=== PATIENT | male | born 1950 | race Hispanic/Latino ===

== ENCOUNTER 2023-02-23 17:05 | Emergency (ER) | payer OTHER ==
[~2023-02-23] VITALS: Ht 165.1 cm; Wt 77.1 kg
[2023-02-23 18:59] LABS: APPEARANCE,URINE CLEAR (CLEAR); BILIRUBIN,URINE NEGATIVE (NEGATIVE); COLOR,URINE LIGHT-YELLOW (YELLOW); GLUCOSE, URINE (UA) NEGATIVE (NEGATIVE); KETONES,URINE NEGATIVE (NEGATIVE); LEUKOCYTE ESTERASE ,URINE NEGATIVE Leu/uL (NEGATIVE); NITRATE,URINE NEGATIVE (NEGATIVE); OCCULT BLOOD,URINE NEGATIVE (NEGATIVE); PROTEIN,URINE NEGATIVE (NEGATIVE); UROBILINOGEN,URINE 0.2 mg/dL (0.2-1.0)
[2023-02-23 19:00] LABS: ADD UA MICROSCOPIC NO
[2023-02-23] MEDS ORDERED: KETOROLAC 30MG VIAL (30MG/ML) IM ONE (20:00)
[2023-02-23] MEDS ORDERED: KETOROLAC 30MG VIAL (30MG/ML) ONE (20:12)
[2023-02-23 22:24] VITALS: BP 137/74; PULSE 82; RESP 17; O2SAT 98
== END 2023-02-23 22:30 | disposition home or self-care (01) ==
LOC: EDH 17:05
DX: K40.90 Unilateral inguinal hernia, without obstruction or gangrene, not specified as recurrent (principal); I10 Essential (primary) hypertension; E78.00 Pure hypercholesterolemia, unspecified
CPT/HCPCS: 99285; 74176; 81003; 73502; 96372; J1885

== ENCOUNTER 2023-05-27 06:07 | Day surgery (SDC) | payer OTHER ==
[2023-05-22 09:37] VITALS: BP 184/83; PULSE 72; RESP 18
[2023-05-22 09:37] LABS: BASOPHILS # (AUTO) 0.03 K/uL (0.00-0.20); BASOPHILS % (AUTO) 0.4 % (0.0-5.0); EOSINOPHILS # (AUTO) 0.14 K/uL (0.00-0.70); EOSINOPHILS % (AUTO) 1.7 % (0.0-8.0); HEMATOCRIT 41.2 % (42-54); IMMATURE GRANULOCYTE ABSOLUTE 0.02 K/uL (0-1); LYMPHOCYTES # (AUTO) 2.3 K/uL (1.0-4.8); MEAN CORPUSCULAR HEMOGLOBIN 31.5 pg (27.0-33.0); MEAN CORPUSCULAR VOLUME 90.2 fL (79-99); MONOCYTES # (AUTO) 0.6 K/uL (0.1-1.0); MONOCYTES % (AUTO) 7.2 % (3.0-13.0); NEUTROPHILS # (AUTO) 5.2 K/uL (1.8-7.7); NEUTROPHILS % (AUTO) 62.5 % (40.0-77.0); PLATELET COUNT (AUTO) 207 K/uL (130-400); RED BLOOD CELL COUNT(AUTO) 4.57 MIL/uL (4.50-6.20); RED CELL DISTRIBUTION WIDTH 13.3 % (11.0-15.5); WHITE BLOOD COUNT (AUTO) 8.3 K/uL (4.8-10.8)
[2023-05-22 09:49] LABS: POTASSIUM 4.9 mmol/L (3.5-5.1)
[2023-05-22 09:53] LABS: INR <= 0.93 (0.85-1.15); PROTHROMBIN TIME 10.3 SEC (9.6-11.6)
[2023-05-22 09:54] LABS: PARTIAL THROMBOPLASTIN TIME 28.2 SEC (26.3-35.5)
[2023-05-27] VITALS (20 sets, daily range): BP systolic 107–162; BP diastolic 49–87; PULSE 60–78; RESP 10–18
[~2023-05-27] VITALS: Ht 167.6 cm; Wt 74.1 kg
[~2023-05-27 06:07] MED LIST: ENAL-89 PO; SIMV-43 PO
[2023-05-27] MEDS ORDERED: FAMOTIDINE 20MG VIAL IV ONE (07:15)
[2023-05-27] MEDS ORDERED: LIDOCAINE PF 100MG/5ML (2%) SYRINGE 5ML ONE (07:17)
[2023-05-27] MEDS ORDERED: SUCCINYLCHOLINE CHLORIDE 20 MG/ML 10 ML VIAL ONE (07:17)
[2023-05-27] MEDS ORDERED: ROCURONIUM BROMIDE 10MG/1ML 5ML VL ONE (07:17)
[2023-05-27] MEDS ORDERED: PROPOFOL 10 MG/ML 20ML VIAL IV ONE (07:17)
[2023-05-27] MEDS ORDERED: GLYCOPYRROLATE 0.2 MG/ML 5 ML VIAL ONE (07:17)
[2023-05-27] MEDS: CEFAZOLIN SODIUM 2 GM VIAL ONE (07:18)
[2023-05-27] MEDS: LACTATED RINGERS 1000ML 1,000 ML IV ONE (07:18)
[2023-05-27] MEDS ORDERED: FENTANYL CITRATE PF 50 MCG/1 ML 2ML VIAL ONE (07:18)
[2023-05-27] MEDS ORDERED: ROPIVACAINE 0.5% 5MG/ML 30ML ONE (07:23)
[2023-05-27] MEDS ORDERED: PHENYLEPHRINE HCL 10 MG/ML 1ML VIAL IV ONE (07:25)
[2023-05-27] MEDS: CEFAZOLIN SODIUM 2 GM VIAL IVPB ONE (09:15)
[2023-05-27] MEDS ORDERED: ONDANSETRON 4MG INJ ONE (09:33)
[2023-05-27] MEDS ORDERED: ACETAMINOPHEN 1,000 MG/100 ML VIAL IV ONE (09:36)
[2023-05-27] MEDS ORDERED: NEOSTIGMINE METHYLSULFATE 1MG/ML IV ONE (09:53)
[2023-05-27] MEDS ORDERED: MEPERIDINE-PF 25 MG/ML SYG ONE (09:54)
[2023-05-27] MEDS ORDERED: GABA-529 PO (09:57)
[2023-05-27] MEDS ORDERED: DOCU-116 PO (09:57)
[2023-05-27] MEDS ORDERED: TRAM50TA4 PO (09:57)
[2023-05-27] MEDS ORDERED: METH-662 PO (09:57)
[2023-05-27] MEDS: HYDROMORPHONE 1 MG INJ ONE (10:35)
== END 2023-05-27 12:14 | disposition home or self-care (01) ==
LOC: DAH 06:07
PROVIDERS: ATTEND Surgery
DX: K40.90 Unilateral inguinal hernia, without obstruction or gangrene, not specified as recurrent (principal); I10 Essential (primary) hypertension; E78.5 Hyperlipidemia, unspecified; Z79.899 Other long term (current) drug therapy; Z79.01 Long term (current) use of anticoagulants; Z90.49 Acquired absence of other specified parts of digestive tract; Z98.890 Other specified postprocedural states
CPT/HCPCS: 80048; 85025; 85610; 85730; 36415; 93005; 49650; 64486; A6260; A4663; J7030; J7120 ×2; J3490 ×3; J3010; J1170; J0330; J2001; J2704; J2710; J2175; J2795; J2371; J0690 ×2; A4649 ×4; A4930; C1781; A4215; A4223; A4222; A4221; A4600; J2405